=== PATIENT | male | born 1995 | race African-American/Black ===

== ENCOUNTER 2020-01-08 08:08 | Emergency (ER) | payer BC ==
[~2020-01-08] VITALS: Ht 177.8 cm; Wt 70.3 kg
[2020-01-08 08:52] VITALS: BP 124/76
== END 2020-01-08 08:50 | disposition home or self-care (01) ==
LOC: ER 08:08
DX: S02.5XXA Fracture of tooth (traumatic), initial encounter for closed fracture (principal); X58.XXXA Exposure to other specified factors, initial encounter; Y93.89 Activity, other specified; Y92.89 Other specified places as the place of occurrence of the external cause; Y99.8 Other external cause status